=== PATIENT | female | born 1980 | race Caucasian/White ===

== ENCOUNTER → 2020-04-17 13:13 | Outpatient (CLI) | payer OTHER, SELFPAY ==
--- NOTE | 2020-04-17 13:14 | DI.RAD.S_ITS ---
PROCEDURE: XR LUMBAR SPINE MIN 4V INDICATIONS: Progressive low back pain TECHNIQUE: 5 views of the lumbar spine were acquired. COMPARISON: None. FINDINGS: Bones: 5 nonrib-bearing vertebrae are present. There is mildly dextroscoliotic bony alignment centered at L2. No vertebral body compression fractures. No suspicious bony lesions. Degenerative disc height reduction is [id number] at L5-S1. Facet osteoarthritis is moderate from L3-4 through L5-S1 most pronounced at the L5-S1 level. Soft tissues: No acute disease. Oblique images: No pars defects. IMPRESSION: Low lumbosacral spine degenerative changes are relatively mild. No compression fracture seen. Convex rightward scoliosis centered at L2, without underlying morphologic anomaly of the vertebral segments in this area. Scoliosis is the dominant abnormality of this examination, measuring 14.4 degrees. Dictated by: Alireza Remy M.D. on 04/17/2020 at 17:06 Approved by: Alireza Remy M.D. on 04/17/2020 at 17:08
== END ==
PROVIDERS: Referring Provider Physical Medicine & Rehabilitation; Visit Provider Physical Medicine & Rehabilitation
DX: M47.816 Spondylosis without myelopathy or radiculopathy, lumbar region (principal); M47.817 Spondylosis without myelopathy or radiculopathy, lumbosacral region; M51.26 Other intervertebral disc displacement, lumbar region; M41.86 Other forms of scoliosis, lumbar region
CPT/HCPCS: 72110

== ENCOUNTER → 2020-10-31 14:24 | Outpatient (CLI) | payer OTHER, SELFPAY ==
[2020-10-31 16:02] LABS: COVID19 -Nasal RAPID Negative (Negative)
== END ==
PROVIDERS: Visit Provider Physical Medicine & Rehabilitation
DX: Z20.822 Contact with and (suspected) exposure to COVID-19 (principal)
CPT/HCPCS: 87635; C9803

== ENCOUNTER 2020-11-02 13:00 | Outpatient (CLI) | payer OTHER, SELFPAY ==
[2020-11-02] VITALS (8 sets, daily range): BP systolic 109–149; BP diastolic 73–90; PULSE 69–97; RESP 14–23; TEMP 36.7; O2SAT 96–100
--- NOTE | 2020-11-02 13:01 | DI.RAD.S_ITS ---
PROCEDURE: PAIN L INTERLAMINAR/CAUDAL INJ INDICATIONS: SPONDYLOSIS COMPARISON: [facility], CR, XR LUMBAR SPINE MIN 4V, 04/17/2020, 13:33. [facility], MR, MR LUMBAR SPINE WITHOUT CONTRAST, 03/24/2020, 16:34. FINDINGS: Fluoroscopic spot filming was performed to verify placement of spinal needles at the L5-S1 level(s), as labeled on the films. Appropriate location(s) of the needle tip(s) was confirmed by injection of iodinated contrast. IMPRESSION: Fluoroscopy for pain management. Dictated by: Santa Martins M.D. on 11/02/2020 at 14:19 Approved by: Santa Martins M.D. on 11/02/2020 at 14:20
[2020-11-02] MEDS: fentaNYL 100 MCG/2 ML INJ 50 MCG IV (13:46)
[2020-11-02] MEDS: MIDAZOLAM 5 MG/5 ML VIAL IV (13:51)
[2020-11-02] MEDS: IOPAMIDOL 15 ML VIAL 3 ML INJ (13:52)
[2020-11-02] MEDS: BUPIVACAINE 0.25% (PF) VIAL 2 ML INJ (13:53)
[2020-11-02] MEDS: BETAMETHASONE 30 MG/5 ML MDV 6 MG INJ (13:53)
[2020-11-02] MEDS: DEXAMETHASONE 10 MG/ML VIAL 20 MG INJ (13:53)
--- NOTE | 2020-11-02 13:58 | P.PCN_ITS ---
Date/Time/Diagnoses Date of procedure: 11/02/20 Time of procedure: 13:58 Pre-procedure diagnosis: 1. HNP WITH RADICULAR FEATURES, 2. MULTILEVEL CENTRAL STENOSIS, Post-procedure diagnosis: same Procedure Notes Procedure: 1. FLUOROSCOPICALLY GUIDED CONTRAST CONTROLLED INTERLAMINAR EPIDURAL STEROID INJECTION - L5/S1 Indications: [place] is referred for treatment of Bilateral Foraminal Stenosis L>R LE symptoms. Physician: Donavan Reis Total Fluoroscopy time (seconds): 5 Total sedation minutes: 9 Complications: none Procedure in detail & Post-procedure care: FINDINGS Multilevel Central Spinal Stenosis with Nerve Root Compression DESCRIPTION OF PROCEDURE Fluoroscopically guided, contrast-controlled L5/S1 translaminar epidural steroid injection. Following review of allergy and review of potential side effects and complications, including, but not necessarily limited to, infection, allergic reaction, local tissue breakdown, temporary as well as permanent nerve injury, paralysis, stroke and possible , the patient indicated that the patient understood and agreed to proceed. An informed consent document was signed by the patient, witnessed by a nurse, and placed in the patient's chart. Additionally, other treatment options including modalities, medications, and physical therapy were reviewed with the patient. After review of previous anaesthesic history and IV conscious sedation the patient was deemed safe to proceed with today?s procedure with IV conscious sedation as ASA class II designation. Safety time-out was performed to confirm patient ID, procedure to be performed and site of procedure. IV sedation was accomplished with a combination of 3mg of Versed and 50mcg of Fentanyl administered by the RN after DO order, titrated to patient comfort during the course of the procedure while the patient remained responsive to all verbal commands. In the prone position, following sterile prep and drape of the lumbar region, the L5/S1 translaminar space was identified fluoroscopically. The skin was anesthetized via a 25-gauge, 1.5-inch needle with 1% lidocaine solution. At this point, a 22-gauge short bevel spinal needle was atraumatically introduced and advanced under fluoroscopic guidance into the region of the L5/S1 translaminar space. Depth was confirmed on lateral view. Radiological data, including multiple fluoroscopic views of the lumbar spine, reveal a spinal needle at the L5/S1 translaminar space. Lateral views then show placement of the needle in the epidural space. Subsequent views show contrast material flowing superiorly and inferiorly in the epidural space. No vascular or intrathecal uptake is observed. At this point, using loss of resistance technique with saline and air, the epidural space was entered. This was confirmed following negative aspiration with injection of approximately 1.5cc of Isovue 200, showing excellent epidural flow without vascular or intrathecal uptake. At this point, 1 cc of 1% l idocaine solution combined with 3cc or 20mg of dexamethasone and 6mg of betamethasone was injected without incident. The patent tolerated the procedure without signs of symptoms of complications pr ior to transfer to the recovery area for further monitoring. The patient was then transferred to the recovery area where they were observed for an appropriate period of time after the injection. The patient reported a VAS score of 6 prior to the procedure and a post-procedure VAS of 0. POST OP INSTRUCTIONS The patient was provided a Pain Log to continue to record their response to the target-specific procedure prior to follow-up visit with their referring physician. Additionally, specific post-injection care instructions and a contact number to our office were provided if concerns arise regarding possible complications associated with the procedure are suspected.
== END 2020-11-02 14:21 | disposition home or self-care (01) ==
LOC: RAD 13:01
PROVIDERS: Referring Provider Physical Medicine & Rehabilitation; Visit Provider Physical Medicine & Rehabilitation
DX: M51.17 Intervertebral disc disorders with radiculopathy, lumbosacral region (principal); M48.07 Spinal stenosis, lumbosacral region
CPT/HCPCS: 62323; J0702; J1100; J2250; J3010

== ENCOUNTER → 2020-12-27 16:04 | Outpatient (CLI) | payer OTHER, SELFPAY ==
--- NOTE | 2020-12-27 16:06 | DI.RAD.S_ITS ---
PROCEDURE: XR CERVICAL SPINE 4V OR 5V INDICATIONS: NECK PAIN TECHNIQUE: 5 views of the cervical spine acquired. COMPARISON: None. FINDINGS: Bones: No fractures or dislocations to the T1 level. Oblique images demonstrate no bony foraminal stenoses. Soft tissues: No prevertebral soft tissue swelling. IMPRESSION: Normal for age, source of current neck pain symptoms is not seen. Dictated by: Alireza Remy M.D. on 12/27/2020 at 16:46 Approved by: Alireza Remy M.D. on 12/27/2020 at 16:46
--- NOTE | 2020-12-27 16:06 | DI.RAD.S_ITS ---
PROCEDURE: XR THORACIC SPINE 2V INDICATIONS: RIB PAIN TECHNIQUE: 3 views of the thoracic spine were acquired. COMPARISON: None. FINDINGS: Bones: No fractures or dislocations. No suspicious bony lesions. 12 pairs of ribs are noted, and appear intact where visualized. Soft tissues: No paravertebral stripe thickening. IMPRESSION: No trauma. Mild convex leftward scoliosis centered at the lower 3rd of the thoracic spine. Source of reported rib pain is not identified. Dictated by: Alireza Remy M.D. on 12/27/2020 at 16:45 Approved by: Alireza Remy M.D. on 12/27/2020 at 16:46
== END ==
PROVIDERS: Referring Provider Physical Medicine & Rehabilitation; Visit Provider Physical Medicine & Rehabilitation
DX: M54.2 Cervicalgia (principal); R07.81 Pleurodynia; M41.9 Scoliosis, unspecified
CPT/HCPCS: 72050; 72070